=== PATIENT | female | born 1970 | race African-American/Black ===

== ENCOUNTER 2021-03-17 21:38 | Emergency (ER) | payer MEDICAID, OTHER ==
[~2021-03-17] VITALS: Ht 177.8 cm; Wt 91.0 kg
[2021-03-18 00:46] VITALS: BP 128/78
== END 2021-03-18 00:56 | disposition home or self-care (01) ==
LOC: ER 21:38
DX: R07.89 Other chest pain (principal); I10 Essential (primary) hypertension
CPT/HCPCS: 36415; 84484; 93005; 99283

== ENCOUNTER 2024-11-22 16:32 | Emergency (ER) | payer OTHER ==
[~2024-11-22] VITALS: Ht 177.8 cm; Wt 116.0 kg
[2024-11-22 16:39] VITALS: BP 145/86; TEMP 98.7; O2SAT 96
[2024-11-22 17:48] VITALS: PULSE 104; RESP 20
[2024-11-22] MEDS: IPRATROPIUM/ALBUTEROL 0.5-3(2.5)MG/3ML NEB HHN ONE (17:48)
[2024-11-22] MEDS: PREDNISONE 20MG TABLET PO ONE (18:09)
[2024-11-22 18:51] LABS: BASOPHILS % 0.6 % (0.0-2.0); EOSINOPHILS % 4.1 % (0.0-5.0); HEMATOCRIT. 39.1 % (36.0-48.0); HEMOGLOBIN. 12.9 g/dL (12.0-16.0); LYMPHOCYTES % 34.9 % (20.0-50.0); MEAN CORPUSCULAR HEMOGLOBIN 29.2 pg (28.0-32.0); MEAN CORPUSCULAR HGB CONC 32.9 g/dL (31.0-37.0); MEAN CORPUSCULAR VOLUME 88.7 fL (81.0-99.0); MEAN PLATELET VOLUME 7.9 fl (7.4-10.4); MONOCYTES % 9.7 % (2.0-8.0); NEUTROPHILS % 50.7 % (40.0-76.0); PLATELET 360 x1000/uL (130-400); RED CELL DISTRIBUTION WIDTH 15.2 % (11.6-14.6); WHITE BLOOD COUNT 6.7 x1000/uL (4.5-11.0)
[2024-11-22 18:58] LABS: CHLORIDE 104 mEq/L (98-107); POTASSIUM 3.5 mEq/L (3.5-5.1); SODIUM 140 mEq/L (136-145)
[2024-11-22 18:59] LABS: CARBON DIOXIDE 25 mEq/L (21-32)
[2024-11-22 19:00] LABS: CALCIUM 9.7 mg/dL (8.7-10.4)
[2024-11-22 19:02] LABS: INR 0.9; PROTHROMBIN TIME 10.5 sec (9.6-11.0)
[2024-11-22 19:04] LABS: CREATININE 0.8 mg/dL (0.6-1.0); GLUCOSE 100 mg/dL (70-105); UREA NITROGEN BLOOD 10 mg/dL (9-23)
[2024-11-22] MEDS ORDERED: P50 MT (19:13)
[2024-11-22] MEDS ORDERED: ALBU18HF2 IH (19:13)
[2024-11-22] MEDS ORDERED: GUAI237L83 MT (19:13)
[2024-11-22 19:29] LABS: TROPONIN I HIGH SENSITIVITY < 4 ng/L (3.0-34)
== END 2024-11-22 21:25 | disposition home or self-care (01) ==
LOC: ER 16:32
DX: J40 Bronchitis, not specified as acute or chronic (principal); I10 Essential (primary) hypertension; Z79.899 Other long term (current) drug therapy
CPT/HCPCS: 80048; 83880; 83690; 85025; 85610; 84484; 36415; 71045; 94640; 93005; 94070; 99285; J7512; Z7610 ×3

== ENCOUNTER 2025-06-02 21:00 | Emergency (ER) | payer MEDICAID, OTHER ==
[~2025-06-02] VITALS: Ht 177.8 cm; Wt 115.8 kg
[~2025-06-02 21:00] MED LIST: ALBU18HF2 IH; GUAI237L83 MT; P50 MT
[2025-06-02 21:19] VITALS: TEMP 36.8; O2SAT 100
[2025-06-02] MEDS: METOCLOPRAMIDE HCL 10MG/2ML VIAL IV ONE (22:59)
[2025-06-02] MEDS: ACETAMINOPHEN 325MG TABLET PO ONE (22:59)
[2025-06-02] MEDS: SODIUM CHLORIDE 0.9% 1,000 ML IV ONE (23:00)
[2025-06-02] MEDS: KETOROLAC 15MG/ML VIAL IV ONE (23:00)
[2025-06-03] MEDS ORDERED: ACET-2708 MT (01:14)
[2025-06-03 05:07] VITALS: BP 140/79; PULSE 74; RESP 12; O2SAT 99
== END 2025-06-03 05:09 | disposition home or self-care (01) ==
LOC: ER 21:00
DX: R51.9 Headache, unspecified (principal); I10 Essential (primary) hypertension; Z98.890 Other specified postprocedural states; Z79.899 Other long term (current) drug therapy
CPT/HCPCS: 99285; 96374; 96361; 96375; 70450; J1885; J2765; J7030

== ENCOUNTER 2025-11-05 12:40 | Emergency (ER) | payer OTHER ==
[~2025-11-05] VITALS: Ht 177.8 cm; Wt 109.0 kg
[~2025-11-05 12:40] MED LIST changes: +ACET-2708 MT
[2025-11-05 12:50] VITALS: O2SAT 98
[2025-11-05 14:11] LABS: BASOPHILS % 0.9 % (0.0-2.0); EOSINOPHILS % 5.1 % (0.0-5.0); HEMATOCRIT. 39.1 % (36.0-48.0); HEMOGLOBIN. 12.9 g/dL (12.0-16.0); LYMPHOCYTES % 38.3 % (20.0-50.0); MEAN PLATELET VOLUME 8.3 fl (7.4-10.4); MONOCYTES % 8.7 % (2.0-8.0); NEUTROPHILS % 47.0 % (40.0-76.0); PLATELET 330 x1000/uL (130-400); RED BLOOD CELL COUNT 4.43 mill/uL (4.2-5.4); RED CELL DISTRIBUTION WIDTH 15.0 % (11.6-14.6)
[2025-11-05 14:25] LABS: CREATININE 0.8 mg/dL (0.6-1.0); UREA NITROGEN BLOOD 10 mg/dL (9-23)
[2025-11-05 14:27] LABS: TROPONIN I HIGH SENSITIVITY < 4 ng/L (3.0-34)
[2025-11-05 14:34] LABS: HCG SCREEN NEGATIVE
[2025-11-05] MEDS ORDERED: HYDR-4001 MT (16:08)
[2025-11-05] MEDS ORDERED: ACET-2708 MT (16:08)
[2025-11-05 16:19] VITALS: BP 155/81; PULSE 95; RESP 17; TEMP 36.7; O2SAT 98
== END 2025-11-05 16:21 | disposition home or self-care (01) ==
LOC: ER 12:40
DX: R25.2 Cramp and spasm (principal); R53.83 Other fatigue; I10 Essential (primary) hypertension; Z98.890 Other specified postprocedural states; Z79.899 Other long term (current) drug therapy
CPT/HCPCS: 36415; 71045; 80048; 84484; 84703; 85025; 93005; 99285